=== PATIENT | female | born 1970 | race Hispanic/Latino ===

== ENCOUNTER → 2017-06-19 | Outpatient (CLI) | payer BC | END | disposition home or self-care (01) | LOC: RAH 08:16 | PROVIDERS: ATTEND Physician Assistant Medical | DX: N63.10 Unspecified lump in the right breast, unspecified quadrant (principal); Z85.3 Personal history of malignant neoplasm of breast | CPT/HCPCS: 76641; 77066 ==

== ENCOUNTER 2021-08-23 15:36 | Emergency (ER) | payer BC, OTHER ==
[~2021-08-23] VITALS: Ht 160 cm; Wt 63.5 kg
[2021-08-23] MEDS ORDERED: ACETAMINOPHEN 500 MG TABLET PO ONE (18:00)
[2021-08-23] MEDS ORDERED: L.E.T. GEL 3ML SYG TP ONE ×2 (18:26→19:00)
[2021-08-23] MEDS ORDERED: OCTYL 2-CYANOACRYLATE 1 EACH TP ONE (19:07)
[2021-08-23] MEDS ORDERED: BACI30OI6 TP (19:19)
[2021-08-23 19:34] VITALS: BP 128/60
== END 2021-08-23 19:35 | disposition home or self-care (01) ==
LOC: EDH 15:36
DX: S01.81XA Laceration without foreign body of other part of head, initial encounter (principal); M54.2 Cervicalgia; I12.9 Hypertensive chronic kidney disease with stage 1 through stage 4 chronic kidney disease, or unspecified chronic kidney disease; N18.9 Chronic kidney disease, unspecified; E78.00 Pure hypercholesterolemia, unspecified; K21.9 Gastro-esophageal reflux disease without esophagitis; Z85.3 Personal history of malignant neoplasm of breast; Z88.0 Allergy status to penicillin; X58.XXXA Exposure to other specified factors, initial encounter; Y93.89 Activity, other specified; Y92.89 Other specified places as the place of occurrence of the external cause; Y99.8 Other external cause status
CPT/HCPCS: 12011; 70450; 72125

== ENCOUNTER 2022-02-22 06:47 | Day surgery (SDC) | payer OTHER ==
[2022-02-20 15:50] LABS: HEMATOCRIT 29.2 % (36-48); MEAN CORPUSCULAR HEMOGLOBIN 31.8 pg (27.0-33.0); MEAN CORPUSCULAR HGB CONC 31.8 g/dL (32.0-36.0); RED BLOOD CELL COUNT(AUTO) 2.92 MIL/uL (4.00-5.50); RED CELL DISTRIBUTION WIDTH 15.2 % (11.0-15.5); WHITE BLOOD COUNT (AUTO) 6.1 K/uL (4.8-10.8)
[2022-02-20 16:00] LABS: PROTHROMBIN TIME 10.9 SEC (9.6-11.6)
[2022-02-20 16:02] LABS: PARTIAL THROMBOPLASTIN TIME 24.3 SEC (26.3-35.5)
[2022-02-20 16:03] LABS: CREATININE 5.4 mg/dL (0.5-1.5); POTASSIUM 3.9 mmol/L (3.5-5.1)
[2022-02-21 08:55] VITALS: BP 150/95
[2022-02-22] VITALS (18 sets, daily range): BP systolic 100–139; BP diastolic 65–87
[~2022-02-22] VITALS: Ht 162.6 cm; Wt 59.9 kg
[~2022-02-22 06:47] MED LIST: AMLO-257 PO; ATEN25TA PO; FOLI1TAB85 PO; HEPARIN 1,000 UNIT VIAL ONE; MONT10TA21 PO; PANT40TA PO; SEVE800T7 PO
[2022-02-22] MEDS ORDERED: CEFAZOLIN SODIUM 1 GM VIAL ONE (08:15)
[2022-02-22] MEDS ORDERED: 0.9% NACL 500ML IV.SOLN 500 ML IV ONE (08:15)
[2022-02-22] MEDS ORDERED: CLINDAMYCIN IVPB 900MG/50ML 50 ML IV ONE (08:37)
[2022-02-22] MEDS ORDERED: MIDAZOLAM HCL 1 MG/ML 2ML VIAL ONE ×2 (11:29→11:42)
[2022-02-22] MEDS ORDERED: FENTANYL CITRATE PF 50 MCG/1 ML 2ML VIAL ONE (11:43)
[2022-02-22] MEDS ORDERED: GLYCOPYRROLATE 1 MG/5 ML SYRINGE ONE (11:43)
[2022-02-22] MEDS ORDERED: ROCURONIUM 10MG/1ML SYR 10 MG/ML ML ONE (11:43)
[2022-02-22] MEDS ORDERED: LIDOCAINE PF 100MG/5ML (2%) SYRINGE 5ML ONE (11:43)
[2022-02-22] MEDS ORDERED: PROPOFOL 10 MG/ML 20ML VIAL IV ONE (11:43)
[2022-02-22] MEDS ORDERED: ONDANSETRON 4MG INJ ONE (12:17)
[2022-02-22] MEDS ORDERED: NEOSTIGMINE 5MG/5ML SYR IV ONE (13:09)
[2022-02-22] MEDS ORDERED: MEPERIDINE-PF 25 MG/ML SYG ONE (13:43)
== END 2022-02-22 15:30 | disposition home or self-care (01) ==
LOC: DAH 06:47
PROVIDERS: ATTEND Thoracic Surgery (Cardiothoracic Vascular Surgery)
DX: I12.0 Hypertensive chronic kidney disease with stage 5 chronic kidney disease or end stage renal disease (principal); N18.6 End stage renal disease; K21.9 Gastro-esophageal reflux disease without esophagitis; Z98.890 Other specified postprocedural states; Z98.51 Tubal ligation status; Z98.891 History of uterine scar from previous surgery; Z90.10 Acquired absence of unspecified breast and nipple; Z88.8 Allergy status to other drugs, medicaments and biological substances; Z88.0 Allergy status to penicillin; Z99.2 Dependence on renal dialysis
CPT/HCPCS: 80048; 84703; 85027; 85610; 85730; 86850; 86900; 86901; 87426; 36415 ×2; 71045; 93005; 36830; 84132; A4221; A4663; A6207; J7030; A4452; J7040; J3010; J3490 ×2; J2710; J2001; J2250 ×2; J2704; J2405; J2175; J1644; A6446; G0168; A4649; C1713 ×3; A4930; C1768; A5120; A4215; A4223; A4222; J0690

== ENCOUNTER → 2022-07-31 | Outpatient (CLI) | payer OTHER, MEDICARE ==
[~2022-07-31] MED LIST changes: -HEPARIN 1,000 UNIT VIAL ONE; +MONT-47 PO; -MONT10TA21 PO
== END | disposition home or self-care (01) ==
LOC: RAH 10:53
PROVIDERS: ATTEND Thoracic Surgery (Cardiothoracic Vascular Surgery)
DX: Z48.812 Encounter for surgical aftercare following surgery on the circulatory system (principal); N18.6 End stage renal disease; Z95.828 Presence of other vascular implants and grafts; Z99.2 Dependence on renal dialysis
CPT/HCPCS: 93931; 93971

== ENCOUNTER → 2022-10-27 | Outpatient (CLI) | payer OTHER, MEDICARE | END | disposition home or self-care (01) | LOC: RAH 13:43 | PROVIDERS: ATTEND Thoracic Surgery (Cardiothoracic Vascular Surgery) | DX: Z01.818 Encounter for other preprocedural examination (principal); Z48.812 Encounter for surgical aftercare following surgery on the circulatory system; N18.6 End stage renal disease | CPT/HCPCS: 93971 ==

== ENCOUNTER 2022-11-27 06:10 | Day surgery (SDC) | payer OTHER, MEDICARE ==
[2022-11-24 14:43] VITALS: BP 152/83; PULSE 60; RESP 16
[2022-11-24 14:47] LABS: HEMATOCRIT 33.5 % (36-48); MEAN CORPUSCULAR HEMOGLOBIN 33.7 pg (27.0-33.0); MEAN CORPUSCULAR HGB CONC 32.8 g/dL (32.0-36.0); MEAN CORPUSCULAR VOLUME 102.8 fL (79-99); RED BLOOD CELL COUNT(AUTO) 3.26 MIL/uL (4.00-5.50); RED CELL DISTRIBUTION WIDTH 14.4 % (11.0-15.5); WHITE BLOOD COUNT (AUTO) 6.3 K/uL (4.8-10.8)
[2022-11-24 14:57] LABS: POTASSIUM 4.2 mmol/L (3.5-5.1)
[2022-11-24 15:02] LABS: INR 0.94 (0.85-1.15)
[2022-11-24 15:04] LABS: PARTIAL THROMBOPLASTIN TIME 26.5 SEC (26.3-35.5)
[2022-11-27] VITALS (17 sets, daily range): BP systolic 104–147; BP diastolic 66–86; PULSE 48–73; RESP 13–20
[~2022-11-27] VITALS: Ht 160 cm; Wt 63.5 kg
[~2022-11-27 06:10] MED LIST changes: +CLINDAMYCIN IVPB 600MG/50ML 50 ML IV SCH; +ONDA-104 PO; +ROPI0.5T37 PO; +SERT-438 PO
[2022-11-27] MEDS ORDERED: 0.9% NACL 500ML IV.SOLN 500 ML IV ONE (06:48)
[2022-11-27] MEDS ORDERED: LIDOCAINE HCL 1% 20 ML VIAL ONE (06:48)
[2022-11-27] MEDS ORDERED: BUPIVACAINE/PF 0.5% 10ML VIAL ONE (06:51)
[2022-11-27 07:00] LABS: CREATININE 5.9 mg/dL (0.5-1.5); POTASSIUM 3.8 mmol/L (3.5-5.1)
[2022-11-27] MEDS ORDERED: VANCOMYCIN 1G/250ML KIT 250 ML IV ONE ×2 (07:19→08:31)
[2022-11-27] MEDS ORDERED: VANCOMYCIN 1G VIAL IVPB ONE (07:45)
[2022-11-27] MEDS ORDERED: FENTANYL CITRATE PF 50 MCG/1 ML 2ML VIAL ONE (07:48)
[2022-11-27] MEDS ORDERED: LIDOCAINE PF 100MG/5ML (2%) SYRINGE 5ML ONE (07:48)
[2022-11-27] MEDS ORDERED: PROPOFOL 10 MG/ML 20ML VIAL IV ONE (07:49)
[2022-11-27] MEDS ORDERED: MIDAZOLAM HCL 1 MG/ML 2ML VIAL ONE (07:49)
[2022-11-27] MEDS ORDERED: ROCURONIUM 10MG/1ML SYR 10 MG/ML ML ONE (07:49)
[2022-11-27] MEDS ORDERED: PHENYLEPHRINE HCL 10 MG/ML 1ML VIAL IV ONE ×2 (07:51→07:54)
[2022-11-27] MEDS ORDERED: LIDOCAINE HCL 1% 10 ML VIAL INJ ONE (08:31)
[2022-11-27] MEDS ORDERED: BUPIVACAINE/EPI/PF 0.25% 10ML VIAL IJ ONE (08:31)
[2022-11-27] MEDS ORDERED: DEXAMETHASONE SOD PHOSPHATE 10MG/ML 1ML VIAL ONE (09:08)
[2022-11-27] MEDS ORDERED: GLYCOPYRROLATE 1 MG/5 ML SYRINGE ONE (09:09)
[2022-11-27] MEDS ORDERED: ONDANSETRON 4MG INJ ONE ×2 (09:09→10:48)
[2022-11-27] MEDS ORDERED: NEOSTIGMINE 5MG/5ML SYR IV ONE (09:09)
[2022-11-27] MEDS ORDERED: PROTAMINE SULFATE 10 MG/ML 5 ML VIAL ONE (09:55)
== END 2022-11-27 11:50 | disposition home or self-care (01) ==
LOC: DAH 06:10
PROVIDERS: ATTEND Thoracic Surgery (Cardiothoracic Vascular Surgery)
DX: T82.898A Other specified complication of vascular prosthetic devices, implants and grafts, initial encounter (principal); Z20.822 Contact with and (suspected) exposure to COVID-19; I12.0 Hypertensive chronic kidney disease with stage 5 chronic kidney disease or end stage renal disease; N18.6 End stage renal disease; F41.9 Anxiety disorder, unspecified; F32.A Depression, unspecified; K21.9 Gastro-esophageal reflux disease without esophagitis; Z98.890 Other specified postprocedural states; Z98.891 History of uterine scar from previous surgery; Z79.899 Other long term (current) drug therapy; Z88.0 Allergy status to penicillin; Z99.2 Dependence on renal dialysis; Y83.2 Surgical operation with anastomosis, bypass or graft as the cause of abnormal reaction of the patient, or of later complication, without mention of misadventure at the time of the procedure; Y92.89 Other specified places as the place of occurrence of the external cause
CPT/HCPCS: 80048 ×2; 84703; 85027; 85610; 85730; 86850; 86900; 86901; 87426; 36415 ×2; 71045; 36830; A6260; A4663; J7030; A4215 ×2; A4452; J7040; J3370 ×3; J3010; J3490 ×4; J1100; J2710; J2001; J2720; J2250; J2704; J2405 ×2; J1644; J2371 ×2; A6446; A4649 ×2; C1713 ×2; A4930; C1768; A4223; A4222; A4221; G0168

== ENCOUNTER 2024-02-23 19:21 | Emergency (ER) | payer BC, MEDICARE ==
[~2024-02-23] VITALS: Ht 160 cm; Wt 50.8 kg
[~2024-02-23 19:21] MED LIST changes: -CLINDAMYCIN IVPB 600MG/50ML 50 ML IV SCH; +LEVO-70 PO
[2024-02-23 19:53] LABS: BASOPHILS # (AUTO) 0.04 K/uL (0.00-0.20); BASOPHILS % (AUTO) 0.5 % (0.0-5.0); EOSINOPHILS # (AUTO) 0.07 K/uL (0.00-0.70); EOSINOPHILS % (AUTO) 0.9 % (0.0-8.0); HEMATOCRIT 36.1 % (36-48); IMMATURE GRANULOCYTE ABSOLUTE 0.03 K/uL (0-1); LYMPHOCYTES # (AUTO) 1.8 K/uL (1.0-4.8); LYMPHOCYTES % (AUTO) 22.3 % (21.0-51.0); MEAN CORPUSCULAR HEMOGLOBIN 33.8 pg (27.0-33.0); MEAN CORPUSCULAR HGB CONC 33.8 g/dL (32.0-36.0); MONOCYTES # (AUTO) 0.5 K/uL (0.1-1.0); MONOCYTES % (AUTO) 5.7 % (3.0-13.0); NEUTROPHILS # (AUTO) 5.5 K/uL (1.8-7.7); NEUTROPHILS % (AUTO) 70.2 % (40.0-77.0); PLATELET COUNT (AUTO) 215 K/uL (130-400); RED BLOOD CELL COUNT(AUTO) 3.61 MIL/uL (4.00-5.50); WHITE BLOOD COUNT (AUTO) 7.9 K/uL (4.8-10.8)
[2024-02-23 20:07] LABS: CREATININE 3.7 mg/dL (0.5-1.0); POTASSIUM 3.3 mmol/L (3.5-5.1)
[2024-02-23] MEDS: PoTASSium BIcarbonate/CIT AC 25 MEQ TABLET.EFF PO ONE (20:31)
[2024-02-23] MEDS: HYDROcodone/APAP 5/325 1 TAB TABLET PO ONE (20:31)
[2024-02-23 21:01] LABS: APPEARANCE,URINE CLOUDY (CLEAR); BILIRUBIN,URINE NEGATIVE (NEGATIVE); COLOR,URINE YELLOW (YELLOW); GLUCOSE, URINE (UA) 150 mg/dL (NEGATIVE); KETONES,URINE NEGATIVE (NEGATIVE); LEUKOCYTE ESTERASE ,URINE 500 Leu/uL (NEGATIVE); NITRATE,URINE NEGATIVE (NEGATIVE); OCCULT BLOOD,URINE MODERATE (NEGATIVE); PH,URINE 8.5 (5.0-8.0); PROTEIN,URINE 600 mg/dL (NEGATIVE); UROBILINOGEN,URINE 0.2 mg/dL (0.2-1.0)
[2024-02-23 21:03] LABS: ADD UA MICROSCOPIC YES
[2024-02-23 21:16] LABS: BACTERIA,URINE RARE /HPF (None Seen); MUCUS,URINE RARE LPF (None Seen); NON-SQUAMOUS EPITHELIAL CELL 3 /HPF (0-2); RBC,URINE 51-100 /HPF (0-1); SQUAMOUS EPITHELIAL CELL,UR MOD /HPF (0-2); WBC,URINE 26-50 /HPF (0-1)
[2024-02-23] MEDS ORDERED: ACET-2079 PO (21:20)
[2024-02-23 21:29] VITALS: BP 134/76; PULSE 70; RESP 20; TEMP 98.6; O2SAT 100
== END 2024-02-23 21:33 | disposition home or self-care (01) ==
LOC: EDH 19:21
DX: S30.0XXA Contusion of lower back and pelvis, initial encounter (principal); I12.9 Hypertensive chronic kidney disease with stage 1 through stage 4 chronic kidney disease, or unspecified chronic kidney disease; N18.9 Chronic kidney disease, unspecified; N30.00 Acute cystitis without hematuria; D63.1 Anemia in chronic kidney disease; E78.00 Pure hypercholesterolemia, unspecified; E87.6 Hypokalemia; K21.9 Gastro-esophageal reflux disease without esophagitis; Z88.0 Allergy status to penicillin; Z79.899 Other long term (current) drug therapy; W18.39XA Other fall on same level, initial encounter; Y93.89 Activity, other specified; Y92.89 Other specified places as the place of occurrence of the external cause; Y99.8 Other external cause status
CPT/HCPCS: 36415; 76705; 80048; 81001; 83605; 85025; 87086